=== PATIENT | female | born 2000 | race Two or more races ===

== ENCOUNTER 2021-04-30 21:43 | Emergency (ER) | payer SELFPAY ==
[2021-04-30 22:33] VITALS: BP 107/69; PULSE 68; RESP 16; TEMP 97.9
[2021-04-30 23:05] LABS: Amorphous Sediment,Urine Rare /hpf; Appearance,Urine Clear (Clear); Bilirubin,Urine Negative (Negative); Blood,Urine Negative (Negative); Color,Urine Yellow; Glucose,Urine (UA) Negative (Negative); Ketones,Urine 1+ (Negative); Leukocyte Esterase,Urine Small (Negative); Mucus,Urine Few /hpf; Nitrite,Urine Negative (Negative); PH, Urine 5.5 (5.0-8.0); Protein,Urine 1+ (Negative); RBC,Urine 2 /hpf (0-5); Specific Gravity,Urine 1.032 (1.001-1.035); Squamous Epithelial Cell,Urine 5 /hpf (0-4); WBC,Urine 18 /hpf (0-5)
== END 2021-04-30 23:30 | disposition left against medical advice (07) ==
LOC: EC 21:43
DX: O26.851 Spotting complicating pregnancy, first trimester (principal); Z3A.00 Weeks of gestation of pregnancy not specified; Z53.21 Procedure and treatment not carried out due to patient leaving prior to being seen by health care provider
CPT/HCPCS: 81001; 87086; 99499

== ENCOUNTER 2021-06-25 13:59 | Emergency (ER) | payer OTHER ==
[2021-06-25 14:20] VITALS: RESP 18; TEMP 97.1
[2021-06-25] MEDS ORDERED: SODIUM CHLORIDE 0.9% 1,000 ML IV ONE (14:52)
[2021-06-25 15:22] LABS: Basophils % (A) 1 %; Eosinophils # (A) 0.5 k/uL (0-0.7); Eosinophils % (A) 5 %; HCT 36.7 % (34.0-46.0); HGB 12.5 gm/dL (11.4-16.0); Lymphocytes # (A) 2.3 k/uL (1.0-4.8); Lymphocytes % (A) 25 %; MCH 30.7 pg (25.0-35.0); MCHC 34.2 g/dL (31.0-37.0); MCV 89.7 fL (80.0-100.0); Mean Platelet Volume 8.4; Monocytes # (A) 0.4 k/uL (0-1.0); Monocytes % (A) 4 %; Neutrophils # (A) 6.1 k/uL (1.3-7.7); Neutrophils % (A) 65 %; Platelet Count 223 k/uL (150-450); RBC 4.09 m/uL (3.80-5.40); RDW 12.9 % (11.5-15.5); WBC 9.3 k/uL (3.8-10.6)
[2021-06-25 15:44] LABS: ALT 11 U/L (4-34); AST 19 U/L (14-36); African American GFR (CKD) >90 (>60 ml/min/1.73 sqM); Albumin 3.6 g/dL (3.5-5.0); Alkaline Phosphatase 54 U/L (38-126); Anion Gap 9 mmol/L; Blood Urea Nitrogen 5 mg/dL (7-17); Calcium 9.3 mg/dL (8.4-10.2); Carbon Dioxide 21 mmol/L (22-30); Chloride 106 mmol/L (98-107); Glucose 83 mg/dL (74-99); Non-African American GFR(CKD) >90 (>60 ml/min/1.73 sqM); Potassium 3.7 mmol/L (3.5-5.1); Sodium 136 mmol/L (137-145); Total Bilirubin 0.4 mg/dL (0.2-1.3); Total Protein 7.1 g/dL (6.3-8.2)
--- NOTE | 2021-06-25 15:53 | US ---
EXAMINATION TYPE: US OB >= 14 wk fetus DATE OF EXAM: 06/25/2021 COMPARISON: Prior ultrasound June 02, 2021 CLINICAL HISTORY: pain Pt states feeling "contractions" TECHNIQUE: Transabdominal (TA) GESTATIONAL AGE / DATING Physician Established: (15 weeks/6 days) EDC: 12/11/2021 Dates by LMP: (15 weeks/6 days) EDC: 12/11/2021 Dates by First Scan: (15 weeks/4 days) EDC: 12/13/2021 Dates by Current Scan: (15 weeks/5 days) EDC: 12/12/2021 SURVEY IUP: Single PLACENTA: Anterior PREVIA: No Previa AMANDA: 10.1 cm Normal CERVICAL LENGTH (transabdominal: norm > 3.0cm): 3.1 cm BIOMETRY PRESENTATION: Vertex BPD: 3.2 cm 15 weeks / 6 days HC: 11.8 cm 15 weeks / 6 days AC: 9.0 cm 15 weeks / 1 days FL: 1.8 cm 15 weeks / 3 days ESTIMATED WEIGHT IN GRAMS: 121.8 grams ESTIMATED WEIGHT IN LBS/OZ: 0 lbs. 4 oz. WEIGHT PERCENTAGE BASED ON ESTABLISHED DATES: 13.7% HC/AC: 1.31 Normal FL/AC: 20 Normal HEART RATE: 138 bpm RHYTHM: Normal Single live intrauterine gestation redemonstrated as gestational sac and pole are seen. Normal cephalad presentation to the fetus is identified. Low lying placenta without previa. No cervical thic kening measured towards end of study measured 1 limits of normal. Estimated amniotic fluid index with in normal limits. biometry measurements concordant and within normal limits with interval [employer] impression from prior. IMPRESSION: As above.
[2021-06-25 15:54] LABS: Appearance,Urine Clear (Clear); Bacteria,Urine Rare /hpf; Bilirubin,Urine Negative (Negative); Blood,Urine Negative (Negative); Color,Urine Light Yellow; Glucose,Urine (UA) Negative (Negative); Ketones,Urine Negative (Negative); Leukocyte Esterase,Urine Large (Negative); Mucus,Urine Rare /hpf; Nitrite,Urine Negative (Negative); PH, Urine 6.5 (5.0-8.0); Protein,Urine Negative (Negative); RBC,Urine 3 /hpf (0-5); Specific Gravity,Urine 1.004 (1.001-1.035); Squamous Epithelial Cell,Urine 2 /hpf (0-4); Urobilinogen,Urine <2.0 mg/dL (<2.0); WBC,Urine 7 /hpf (0-5)
--- NOTE | 2021-06-25 16:07 | ED ---
General Adult HPI - General Chief complaint: Abdominal Pain Stated complaint: 16wks preg, cramping Time Seen by Provider: 06/25/21 14:32 Source: patient Mode of arrival: ambulatory Limitations: no limitations - History of Present Illness Initial comments: 20-year-old female currently 16 weeks with an LMP of March 06 presents to the emergency room for abdominal pain. Patient states since earlier today she has had abdominal pain that she states feels like cramping. Patient states it comes and goes. Patient denies any vaginal bleeding. She does have some back pain in the lower back with this. Patient does have an OB and has been following outpatient.Patient has no other complaints at this time including shortness of breath, chest pain, nausea or vomiting, headache, or visual changes. - Related Data Home Medications Medication Instructions Recorded Confirmed Wag-Eevs-Lhtxm Acid 1 cap PO DAILY 06/02/21 06/02/21 [-U Capsule (formulary)] Previous Rx's Medication Instructions Recorded Cephalexin [Keflex] 500 mg PO BID 7 Days #14 cap 06/25/21 Allergies Allergy/AdvReac Type Severity Reaction Status Date / Time No Known Allergies Allergy Verified 06/25/21 15:49 Review of Systems ROS Statement: Those systems with pertinent positive or pertinent negative responses have been documented in the HPI. ROS Other: All systems not noted in ROS Statement are negative. Past Medical History Past Medical History: No Reported History History of Any Multi-Drug Resistant Organisms: None Reported Past Surgical History: No Surgical Hx Reported Past Psychological History: Depression Smoking Status: Never smoker Past Alcohol Use History: None Reported Past Drug Use History: None Reported General Exam Limitations: no limitations General appearance: alert, in no apparent distress Head exam: Present: atraumatic Eye exam: Present: normal appearance, PERRL, EOMI. Absent: scleral icterus, conjunctival injection ENT exam: Present: normal exam, mucous membranes moist Neck exam: Present: normal inspection, full ROM. Absent: tenderness Respiratory exam: Present: normal lung sounds bilaterally. Absent: respiratory distress, wheezes Cardiovascular Exam: Present: regular rate, normal rhythm, normal heart sounds GI/Abdominal exam: Present: soft, normal bowel sounds. Absent: distended, tenderness Neurological exam: Present: alert Course Vital Signs 06/25/21 14:16 Temperature 97.1 F L Pulse Rate 69 Respiratory 18 Rate Blood Pressure 96/62 O2 Sat by Pulse 100 Oximetry Medical Decision Making - Medical Decision Making Vitals are stable. CBC CMP unremarkable. Urinalysis does show mild evidence of infection with 7 white cells and rare bacteria, will be treated given recommendations to treat asymptomatic bacturia and . Ultrasound was obtained which showed a single live intrauterine gestation. Cervical length 3.1 cm. At this time patient is stable to be discharged home with follow-up with her doctor. She should return here for any worsening symptoms. - Lab Data Result diagrams: 06/25/21 15:16 06/25/21 15:16 Lab Results 06/25/21 06/25/21 06/25/21 Range/Units 15:16 15:16 15:16 WBC 9.3 (3.8-10.6) k/uL RBC 4.09 (3.80-5.40) m/uL Hgb 12.5 (11.4-16.0) gm/dL Hct 36.7 (34.0-46.0) % MCV 89.7 (80.0-100.0) fL MCH 30.7 (25.0-35.0) pg MCHC 34.2 (31.0-37.0) g/dL RDW 12.9 (11.5-15.5) % Plt Count 223 (150-450) k/uL MPV 8.4 Neutrophils % 65 % Lymphocytes % 25 % Monocytes % 4 % Eosinophils % 5 % Basophils % 1 % Neutrophils # 6.1 (1.3-7.7) k/uL Lymphocytes # 2.3 (1.0-4.8) k/uL Monocytes # 0.4 (0-1.0) k/uL Eosinophils # 0.5 (0-0.7) k/uL Basophils # 0.0 (0-0.2) k/uL Sodium 136 L (137-145) mmol/L Potassium 3.7 (3.5-5.1) mmol/L Chloride 106 (98-107) mmol/L Carbon Dioxide 21 L (22-30) mmol/L Anion Gap 9 mmol/L BUN 5 L (7-17) mg/dL Creatinine 0.40 L (0.52-1.04) mg/dL Est GFR (CKD-EPI)AfAm >90 (>60 ml/min/1.73 sqM) Est GFR (CKD-EPI)NonAf >90 (>60 ml/min/1.73 sqM) Glucose 83 (74-99) mg/dL Calcium 9.3 (8.4-10.2) mg/dL Total Bilirubin 0.4 (0.2-1.3) mg/dL AST 19 (14-36) U/L ALT 11 (4-34) U/L Alkaline Phosphatase 54 (38-126) U/L Total Protein 7.1 (6.3-8.2) g/dL Albumin 3.6 (3.5-5.0) g/dL Urine Color Light Yellow Urine Appearance Clear (Clear) Urine pH 6.5 (5.0-8.0) Ur Specific [place] 1.004 (1.001-1.035) Urine Protein Negative (Negative) Urine Glucose (UA) Negative (Negative) Urine Ketones Negative (Negative) Urine Blood Negative (Negative) Urine Nitrite Negative (Negative) Urine Bilirubin Negative (Negative) Urine Urobilinogen <2.0 (<2.0) mg/dL Ur Leukocyte Esterase Large H (Negative) Urine RBC 3 (0-5) /hpf Urine WBC 7 H (0-5) /hpf Ur Squamous Epith Cells 2 (0-4) /hpf Urine Bacteria Rare H (None) /hpf Urine Mucus Rare H (None) /hpf Disposition Clinical Impression: Abdominal pain affecting , UTI (urinary tract infection) Disposition: HOME SELF-CARE Condition: Good Instructions (If sedation given, give patient instructions): Abdominal Pain in (ED) Additional Instructions: Please follow up with your obgyn in 1-2 days. Return to the ER for any worsening symptoms. Prescriptions: Cephalexin [Keflex] 500 mg PO BID 7 Days #14 cap Is patient prescribed a controlled substance at d/c from ED?: No Referrals: Estefania Aguiar DO [Doctor of Osteopathic Medicine] - 1-2 days Time of Disposition: 16:07
[2021-06-25] MEDS ORDERED: CEPHALEXIN 500 MG CAP PO STA (16:28)
[2021-06-25 16:40] VITALS: BP 114/60; PULSE 61
== END 2021-06-25 16:42 | disposition home or self-care (01) ==
LOC: EC 13:59
DX: O23.42 Unspecified infection of urinary tract in pregnancy, second trimester (principal); N39.0 Urinary tract infection, site not specified; Z3A.16 16 weeks gestation of pregnancy
CPT/HCPCS: 36415; 76805; 80053; 81001; 85025; 96360; 99284

== ENCOUNTER → 2022-02-19 | Outpatient (CLI) | payer OTHER ==
--- NOTE | 2022-02-19 09:09 | US ---
EXAMINATION TYPE: US pelvic complete DATE OF EXAM: 02/19/2022 COMPARISON: NONE CLINICAL HISTORY: 21-year-old female R10.2, N83.201. History of right ovarian cyst seen on CT last m onth in [place], , mild pelvic pain, TECHNIQUE: Transabdominal sonographic images of the pelvis were acquired. Date of LMP: 02/03/2022 FINDINGS: EXAM MEASUREMENTS: Uterus: 8.1 x 5.2 x 3.0 cm Endometrial Stripe: 0.4 cm Right Ovary: 3.2 x 2.6 x 2.5 cm Left Ovary: 2.9 x 2.8 x 2.0 cm 1. Uterus: Anteverted and otherwise wnl 2. Endometrium: wnl 3. Right Ovary: 2.3 x 2.1 x 1.7cm 4. Left Ovary: wnl 5. Bilateral Adnexa: wnl 6. Posterior cul-de-sac: wnl IMPRESSION: 1. Right ovarian cyst measuring 2.3 cm. This likely represents a dominant follicle or functional cyst . Correlate with size on the patient's outside prior. Follow-up in 6-8 weeks can be considered to ass ess for involution. 2. Otherwise, no specific abnormality seen.
== END | disposition home or self-care (01) ==
LOC: RADUSWWP 07:38 → MERGE 07:40
PROVIDERS: ATTEND Obstetrics & Gynecology
DX: N83.201 Unspecified ovarian cyst, right side (principal)
CPT/HCPCS: 76856

== ENCOUNTER 2023-08-26 11:15 | Emergency (ER) | payer OTHER ==
[2023-08-26 11:48] VITALS: RESP 18; TEMP 98.2
--- NOTE | 2023-08-26 11:53 | ED ---
Female Urogenital HPI - General Chief complaint: Vaginal Bleeding Stated complaint: Vaginal bleeding/ 8wks preg Time Seen by Provider: 08/26/23 11:51 Source: patient, family, RN notes reviewed Mode of arrival: ambulatory Limitations: no limitations - History of Present Illness Initial comments: Patient is a 23-year-old female presented to the ER with a chief complaint of passing a vaginal clot. Patient reports she is about 8 weeks . She states yesterday at work she started to have minor abdominal cramping which resolved later at night. She states this morning she passed a clot about the size of a quarter. She states also while in the bathroom in the ER she had a little bit of blood. Denies any current abdominal cramping, dysuria, constipation/diarrhea. She has not yet followed up with [facility]. No other complaints. - Related Data Home Medications Medication Instructions Recorded Confirmed Utn-Tspe-Hqwbi Acid 1 cap PO DAILY 06/02/21 06/02/21 [-U Capsule (formulary)] Previous Rx's Medication Instructions Recorded Cephalexin [Keflex] 500 mg PO BID 7 Days #14 cap 06/25/21 Allergies Allergy/AdvReac Type Severity Reaction Status Date / Time No Known Allergies Allergy Verified 08/26/23 11:24 Review of Systems ROS Statement: Those systems with pertinent positive or pertinent negative responses have been documented in the HPI. ROS Other: All systems not noted in ROS Statement are negative. Past Medical History Past Medical History: No Reported History Additional Past Medical History / Comment(s): ovarian cysts History of Any Multi-Drug Resistant Organisms: None Reported Past Surgical History: No Surgical Hx Reported, Section Past Psychological History: Depression, Panic Disorder Smoking Status: Never smoker Past Alcohol Use History: Occasional Past Drug Use History: None Reported General Exam Limitations: no limitations General appearance: alert, in no apparent distress Head exam: Present: atraumatic, normocephalic, normal inspection Eye exam: Present: normal appearance, PERRL, EOMI. Absent: scleral icterus, conjunctival injection, periorbital swelling Respiratory exam: Present: normal lung sounds bilaterally. Absent: respiratory distress, wheezes, rales, rhonchi, stridor Cardiovascular Exam: Present: regular rate, normal rhythm, normal heart sounds. Absent: systolic murmur, diastolic murmur, rubs, gallop, clicks GI/Abdominal exam: Present: soft, normal bowel sounds. Absent: distended, tenderness, guarding, rebound, rigid Neurological exam: Present: alert, oriented X3, CN II-XII intact Psychiatric exam: Present: normal affect, normal mood Skin exam: Present: warm, dry, intact, normal color. Absent: rash Course Vital Signs 08/26/23 08/26/23 11:21 15:29 Temperature 98.2 F Pulse Rate 68 61 Respiratory 18 18 Rate Blood Pressure 103/66 116/69 O2 Sat by Pulse 99 100 Oximetry Medical Decision Making - Medical Decision Making Was pt. sent in by a medical professional or institution (, PA, GRAIN BROKER AND MARKET OPERATOR, urgent care, hospital, or senior care...) When possible be specific @ -No Did you speak to anyone other than the patient for history (EMS, parent, family, police, friend...)? What history was obtained from this source @ -No Did you review nursing and triage notes (agree or disagree)? Why? @ -I reviewed and agree with nursing and triage notes Were old charts reviewed (outside hosp., previous admission, EMS record, old EKG, old radiological studies, urgent care reports/EKG's, senior care records)? Report findings @ -No old charts were reviewed Differential Diagnosis (chest pain, altered mental status, abdominal pain women, abdominal pain men, vaginal bleeding, weakness, fever, dyspnea, syncope, headache, dizziness, GI bleed, back pain, seizure, CVA, palpatations, mental he alth, musculoskeletal)? @Differential Vaginal Bleeding:Spontaneous , threatened , molar , ectopic , bloody show, incompetent cervix, abruptioplacenta, placenta previa, uterine rupture, dysfunctional uterine bleeding, hemorrhage, uterine fibroids, this is not meant to be an all-inclusive list. EKG interpreted by me (3pts min.). @ -[None X-rays interpreted by me (1pt min.). @ -None done CT interpreted by me (1pt min.). @ -None done U/S interpreted by me (1pt. min.). @ -[ ultrasound significant for a single IUP gestational age 8 weeks 1 day. heart rate 138 bpm. There is also an irregular shaped a yolk sac measuring 5 mm. Possible deformity. What testing was considered but not performed or refused? (CT, X-rays, U/S, labs)? Why? @ -None What meds were considered but not given or refused? Why? @ -None Did you discuss the management of the patient with other professionals (professionals i.e. , PA, GRAIN BROKER AND MARKET OPERATOR, lab, RT, psych nurse, social media content manager, credit and collections representative, teacher, commercial loan officer, rn case management)? Give summary @ -No Was smoking cessation discussed for >3mins.? @ -No Was critical care preformed (if so, how long)? @ -No Were there social determinants of health that impacted care today? How? (Homelessness, low income, unemployed, alcoholism, drug addiction, transportation, low edu. Level, literacy, decrease access to med. care, retirement, rehab)? @ -No Was there de-escalation of care discussed even if they declined (Discuss DNR or withdrawal of care, Hospice)? DNR status @ -No What co-morbidities impacted this encounter? (DM, HTN, Smoking, COPD, CAD, Cancer, CVA, ARF, Chemo, Hep., AIDS, mental health diagnosis, sleep apnea, mo rbid obesity)? @ - Was patient admitted / discharged? Hospital course, mention meds given and route, prescriptions, significant lab abnormalities, going to OR and other pertinent info. @ -Discharge. Patient is a 23-year-old female presenting to the ER with a chief complaint of vaginal clots. Patient is approximately 8 weeks gestation. History and physical exam completed. Vitals stable. Patient in no signs of acute distress and nontoxic-appearing. No focal abdominal tenderness to exam. Normal bowel sounds. Labs obtained unremarkable. Hemoglobin 12.2. serum hCG 104,873. Urine without signs of infection. ultrasound significant for single IUP gestation 8 weeks 1 day. Cardiac activity is 138 bpm. There is a possible deformity of yolk sac. Results discussed with patient, all questions answered. Blood type A positive. Advise close follow-up with [facility]. Patient discharged in stable condition with follow-up to [facility]. Return parameters discussed. Patient expressed verbal understanding and agreement with care plan. Case discussed with ED attending, Dr. Santo. Undiagnosed new problem with uncertain prognosis? @ -No Drug Therapy requiring intensive monitoring for toxicity (Heparin, Nitro, Insulin, Cardizem)? @ -No Were any procedures done? @ -No Diagnosis/symptom? @ -/vaginal bleeding Acute, or Chronic, or Acute on Chronic? @ -Acute Uncomplicated (without systemic symptoms) or Complicated (systemic symptoms)? @ -Uncomplicated Side effects of treatment? @ -No Exacerbation, Progression, or Severe Exacerbation? @ -No Poses a threat to life or bodily function? How? (Chest pain, [place], CO, pneumonia, PE, COPD, DKA, ARF, appy, cholecystitis, CVA, Diverticulitis, Homicidal, Suicidal, threat to staff... and all critical care pts) @ -No - Lab Data Result diagrams: 08/26/23 12:07 08/26/23 12:07 Lab Results 08/26/23 08/26/23 08/26/23 Range/Units 12:07 12:07 12:07 WBC 7.8 (3.8-10.6) k/uL RBC 4.29 (3.80-5.40) m/uL Hgb 12.2 (11.4-16.0) gm/dL Hct 38.2 (34.0-46.0) % MCV 88.9 (80.0-100.0) fL MCH 28.3 (25.0-35.0) pg MCHC 31.8 (31.0-37.0) g/dL RDW 13.5 (11.5-15.5) % Plt Count 252 (150-450) k/uL MPV 8.8 Sodium 137 (137-145) mmol/L Potassium 4.1 (3.5-5.1) mmol/L Chloride 108 H (98-107) mmol/L Carbon Dioxide 22 (22-30) mmol/L Anion Gap 7 mmol/L BUN 5 L (7-17) mg/dL Creatinine 0.38 L (0.52-1.04) mg/dL Est GFR (CKD-EPI)AfAm >90 (>60 ml/min/1.73 sqM) Est GFR (CKD-EPI)NonAf >90 (>60 ml/min/1.73 sqM) Glucose 85 (74-99) mg/dL Calcium 9.0 (8.4-10.2) mg/dL Total Bilirubin 0.4 (0.2-1.3) mg/dL AST 23 (14-36) U/L ALT 15 (4-34) U/L Alkaline Phosphatase 65 (38-126) U/L Total Protein 7.8 (6.3-8.2) g/dL Albumin 4.2 (3.5-5.0) g/dL HCG, Quant 546282.0 mIU/mL Urine Color Colorless Urine Appearance Clear (Clear) Urine pH 7.0 (5.0-8.0) Ur Specific [place] 1.003 (1.001-1.035) Urine Protein Negative (Negative) Urine Glucose (UA) Negative (Negative) Urine Ketones Negative (Negative) Urine Blood Small H (Negative) Urine Nitrite Negative (Negative) Urine Bilirubin Negative (Negative) Urine Urobilinogen <2.0 (<2.0) mg/dL Ur Leukocyte Esterase Negative (Negative) Urine RBC 1 (0-5) /hpf Urine WBC 1 (0-5) /hpf Ur Squamous Epith Cells <1 (0-4) /hpf Blood Type Blood Type Recheck Bld Type Recheck Status 08/26/23 Range/Units 14:05 WBC (3.8-10.6) k/uL RBC (3.80-5.40) m/uL Hgb (11.4-16.0) gm/dL Hct (34.0-46.0) % MCV (80.0-100.0) fL MCH (25.0-35.0) pg MCHC (31.0-37.0) g/dL RDW (11.5-15.5) % Plt Count (150-450) k/uL MPV Sodium (137-145) mmol/L Potassium (3.5-5.1) mmol/L Chloride (98-107) mmol/L Carbon Dioxide (22-30) mmol/L Anion Gap mmol/L BUN (7-17) mg/dL Creatinine (0.52-1.04) mg/dL Est GFR (CKD-EPI)AfAm (>60 ml/min/1.73 sqM) Est GFR (CKD-EPI)NonAf (>60 ml/min/1.73 sqM) Glucose (74-99) mg/dL Calcium (8.4-10.2) mg/dL Total Bilirubin (0.2-1.3) mg/dL AST (14-36) U/L ALT (4-34) U/L Alkaline Phosphatase (38-126) U/L Total Protein (6.3-8.2) g/dL Albumin (3.5-5.0) g/dL HCG, Quant mIU/mL Urine Color Urine Appearance (Clear) Urine pH (5.0-8.0) Ur Specific [place] (1.001-1.035) Urine Protein (Negative) Urine Glucose (UA) (Negative) Urine Ketones (Negative) Urine Blood (Negative) Urine Nitrite (Negative) Urine Bilirubin (Negative) Urine Urobilinogen (<2.0) mg/dL Ur Leukocyte Esterase (Negative) Urine RBC (0-5) /hpf Urine WBC (0-5) /hpf Ur Squamous Epith Cells (0-4) /hpf Blood Type A Positive Blood Type Recheck No Previous Record Bld Type Recheck Status [facility] ONLY - Radiology Data Radiology results: report reviewed, image reviewed Disposition Clinical Impression: Vaginal bleeding during Disposition: HOME SELF-CARE Condition: Stable Instructions (If sedation given, give patient instructions): (ED) Additional Instructions: Follow-up with [facility] in the next 1 to 2 days. Return to the ER for any new or worsening concerns. Is patient prescribed a controlled substance at d/c from ED?: No Referrals: Nonstaff,Physician [Primary Care Provider] - 1-2 days Time of Disposition: 15:26
[2023-08-26 12:16] LABS: HCT 38.2 % (34.0-46.0); HGB 12.2 gm/dL (11.4-16.0); MCH 28.3 pg (25.0-35.0); MCHC 31.8 g/dL (31.0-37.0); MCV 88.9 fL (80.0-100.0); Mean Platelet Volume 8.8; Platelet Count 252 k/uL (150-450); RBC 4.29 m/uL (3.80-5.40); RDW 13.5 % (11.5-15.5); WBC 7.8 k/uL (3.8-10.6)
[2023-08-26 12:18] LABS: Appearance,Urine Clear (Clear); Bilirubin,Urine Negative (Negative); Blood,Urine Small (Negative); Color,Urine Colorless; Glucose,Urine (UA) Negative (Negative); Ketones,Urine Negative (Negative); Leukocyte Esterase,Urine Negative (Negative); Nitrite,Urine Negative (Negative); Protein,Urine Negative (Negative); RBC,Urine 1 /hpf (0-5); Specific Gravity,Urine 1.003 (1.001-1.035); Squamous Epithelial Cell,Urine <1 /hpf (0-4); Urobilinogen,Urine <2.0 mg/dL (<2.0); WBC,Urine 1 /hpf (0-5)
[2023-08-26 12:32] LABS: ALT 15 U/L (4-34); AST 23 U/L (14-36); African American GFR (CKD) >90 (>60 ml/min/1.73 sqM); Albumin 4.2 g/dL (3.5-5.0); Alkaline Phosphatase 65 U/L (38-126); Anion Gap 7 mmol/L; Blood Urea Nitrogen 5 mg/dL (7-17); Carbon Dioxide 22 mmol/L (22-30); Chloride 108 mmol/L (98-107); Glucose 85 mg/dL (74-99); Non-African American GFR(CKD) >90 (>60 ml/min/1.73 sqM); Potassium 4.1 mmol/L (3.5-5.1); Sodium 137 mmol/L (137-145); Total Bilirubin 0.4 mg/dL (0.2-1.3); Total Protein 7.8 g/dL (6.3-8.2)
--- NOTE | 2023-08-26 13:13 | US ---
EXAMINATION TYPE: Transabdominal DATE OF EXAM: 08/26/2023 12:50 PM COMPARISON: NONE CLINICAL INDICATION: Female, 23 years old with history of vaginal bleeding and abd cramping; Clotting followed by spotting and cramping EXAM PERFORMED: Transvaginal (TV) and Transabdominal (TA) EXAM MEASUREMENTS: GESTATIONAL AGE / DATING Physician Established: (7 weeks/5 days) EDC: 04/08/2024 Dates by LMP: ( weeks/ days) EDC: Dates by First Scan: (7 weeks/5 days) EDC: 04/08/2024 Dates by Current Scan for: (8 weeks/1 days) EDC: 04/05/2024 MATERNAL ANATOMY Uterus: 9.7 x 4.9 x 5.7 cn Right Ovary: 3.1 x 1.9 x 2.3 cm Left Ovary: 3.1 x 1.9 x 2.3 cm Post CDS / Adnexa: Free fluid Presence of free fluid: CDS Presence of corpus luteal cyst: No Presence of subchorionic bleed: Yes GESTATION / SURVEY CRL: 16.19 (8 weeks/1 days) MSD: NA ( weeks/ days) Yolk Sac (normal less than 6mm): 5 mm ? Irregular shape Heart Rate: 138 bpm Rhythm: Normal IUP: Viable IUP Nuchal Translucency 10-14wks (normal less than 3mm): NA Age Appropriate Anatomy Cord Insertion: NA Limbs: NA Calvarium: NA Date of LMP: Beta HcG (if available): IMPRESSION: 1. 1. Single intrauterine gestation estimated at 8 weeks 1 day gestation based on crown-rump length. Car diac activity measures 138 bpm. 2. There may be some deformity of the yolk sac. Close follow-up is recommended.
[2023-08-26 16:05] VITALS: BP 116/69; PULSE 61
== END 2023-08-26 15:37 | disposition home or self-care (01) ==
LOC: EC 11:15
DX: O99.891 Other specified diseases and conditions complicating pregnancy (principal); N93.9 Abnormal uterine and vaginal bleeding, unspecified; Z3A.08 8 weeks gestation of pregnancy
CPT/HCPCS: 36415; 76801; 80053; 81001; 84702; 85027; 86900; 86901; 99284

== ENCOUNTER → 2023-09-08 | Outpatient (CLI) | payer OTHER ==
--- NOTE | 2023-09-09 13:26 | US ---
EXAMINATION TYPE: Transabdominal DATE OF EXAM: 09/08/2023 4:23 PM COMPARISON: 08/26/2023 CLINICAL INDICATION: Female, 23 years old with history of Z34.90 ENCNTR FOR SUPRVSN OF NORMAL PREGNAN CY, UNS; Dates EXAM PERFORMED: Transvaginal (TV) and Transabdominal (TA) EXAM MEASUREMENTS: GESTATIONAL AGE / DATING Physician Established: (9 weeks/6 days) EDC: 04/08/2024 Dates by LMP: (9 weeks/6 days) EDC: 04/08/2024 Dates by First Scan: (7 weeks/5 days) EDC: Dates by Current Scan for: (9 weeks/4 days) EDC: 04/06/2024 MATERNAL ANATOMY Uterus: 8.0 x 5.1 x 7.0 cm Right Ovary: 2.7 x 1.4 x 2.2 cm Left Ovary: 2.1 x .7 x 1.4 cm Post CDS / Adnexa: wnl Presence of free fluid: no Presence of corpus luteal cyst: no Presence of subchorionic bleed: no GESTATION / SURVEY CRL: 2.88 cm (9 weeks/6 days) Yolk Sac (normal less than 6mm): 4mm Heart Rate: 150 bpm Rhythm: Normal IUP: Viable IUP Beta HcG (if available): Not available at this time IMPRESSION: 1. Intrauterine gestation measuring approximately 9 weeks 6 days with a heart rate of 150 bpm.
== END | disposition home or self-care (01) ==
LOC: RADUSWWP 15:45
PROVIDERS: ATTEND Obstetrics & Gynecology
DX: Z34.90 Encounter for supervision of normal pregnancy, unspecified, unspecified trimester (principal); Z3A.09 9 weeks gestation of pregnancy
CPT/HCPCS: 76801; 76817

== ENCOUNTER → 2023-12-14 | Outpatient (CLI) | payer OTHER ==
--- NOTE | 2023-12-14 21:34 | US ---
EXAMINATION TYPE: US OB anatomy transabd DATE OF EXAM: 12/14/2023 COMPARISON: Multiple, most recent 09/08/2023 CLINICAL INDICATION: Female, 23 years old with history of Z34.90 ENCNTR FOR SUPRVSN OF NORMAL PREGNAN CY; Anatomy; Patient states she feels like baby is falling out TECHNIQUE: Transabdominal (TA) EXAM MEASUREMENTS: GESTATIONAL AGE / DATING Physician Established: (23 weeks/3 days) EDC: 04/08/2024 Dates by LMP: ( weeks/ days) EDC: Dates by First Scan: ( weeks/ days) EDC: Dates by Current Scan for: (24 weeks/1 days) EDC: 04/03/2024 SURVEY IUP: Single PLACENTA: Anterior PREVIA: No previa AMANDA: 14.7 cm Normal CERVICAL LENGTH (transabdominal: norm > 3.0cm): 3.4 cm BIOMETRY PRESENTATION: Vertex LIE: Longitudinal BPD: 5.92 cm 24 weeks / 2 days HC: 22.08 cm 24 weeks / 1 days AC: 19.16 cm 24 weeks / 0 days FL: 4.26 cm 24 weeks / 0 days ESTIMATED WEIGHT IN GRAMS: 644 grams ESTIMATED WEIGHT IN LBS/OZ: 1 lbs. 7 oz. WEIGHT PERCENTAGE BASED ON ESTABLISHED DATE: 67% % HC/AC: 1.15 Normal FL/AC: 22% Normal HEART RATE: 143 bpm RHYTHM: Normal ANATOMY SEEN (within normal limits): * Lateral Vent (< 1 cm) 0.53 cm * Cisterna Magna (< 1.1 cm) 0.48 cm * Nuchal Fold (< 0.6 cm) 0.2 cm * Cerebellum (varies with age) 2.36 cm Choroid Plexus (bilateral) Midline Falx Cavus Septi Pellucidi Four Chamber Heart Outflow tracts: LVOT/RVOT Stomach Situs Nose / Lips Diaphragm Kidneys (bilateral) Bladder Cord Insert Three Vessel Cord Longitudinal Spine Transverse Spine Arms (bilateral) Legs (bilateral) ANATOMY SEEN (does not appear within normal limits): ? upper lip artifact / suboptimal angle vs subtl e cleft lip IMG 20 and 21 ANATOMY NOT SEEN: ALL ANATOMY SEEN ON THIS EXAM IMPRESSION: 1. Limitation on evaluation of the upper lip and palate. Follow-up reevaluation recommended. 2. Single intrauterine gestation estimated at 23 weeks 3 days gestation based on current ultrasound m easurements. Cardiac activity measures 143 beats per was observed during the study.
== END | disposition home or self-care (01) ==
LOC: RADUSWWP 13:17
PROVIDERS: ATTEND Obstetrics & Gynecology
DX: Z34.90 Encounter for supervision of normal pregnancy, unspecified, unspecified trimester (principal); Z3A.23 23 weeks gestation of pregnancy
CPT/HCPCS: 76811

== ENCOUNTER 2024-01-20 22:30 | Observation (INO) | payer OTHER ==
--- NOTE | 2024-03-01 10:34 | US ---
Patient: Darrian Thompson Ordering Physician: Unknown, Unknown ID: [id number] Phone, Pager: Phone: N/A Pager: N/A : [phone] Age/Gender: 23Y, F Primary Location: N/A Procedure: US OB limited Study Date: 01/21/2024 7:26:00 AM EXAMINATION TYPE: US OB limited DATE OF EXAM: 01/21/2024 0726 hours COMPARISON: Earlier this morning 1219 hours CLINICAL INDICATION: 23-year-old female with leaking fluid yesterday. Recheck. EXAM PERFORMED: Transabdominal GESTATIONAL AGE / DATING Not performed. AMANDA: 18.5 cm Normal HEART RATE: 142 bpm IMPRESSION: Limited OB exam assessing AMANDA and heart rate. AMANDA is normal at 18.5 cm (measured at 15.9 cm lat e last night).
--- NOTE | 2024-03-01 10:38 | US ---
EXAM: US , Limited CLINICAL HISTORY: Limited ultrasound for AMANDA. 28weeks 6 days. AMANDA measures 15.9cmas seen today. Heart rate is 133bpm. Fetus is in vertex presentation. TECHNIQUE: Real-time limited ultrasound of the maternal uterus with image documentation. COMPARISON: None FINDINGS/ IMPRESSION: Single intrauterine with heart rate of 133 bpm. Cephalic presentation of the fetus. Normal amniotic fluid index, measuring 15.94 cm. Radiologist: Donte Chaney M.D. Electronically Signed: 01/21/24 05:19 Study first marked ready to read at 00:43, study last marked ready to read at 00:43, initial results transmitted at 05:19 MTDD
== END 2024-01-21 11:00 | disposition home or self-care (01) ==
LOC: FBPOP 22:30 → 4FBP 01-21 00:48
PROVIDERS: ADMIT Obstetrics & Gynecology; ATTEND Obstetrics & Gynecology
DX: O47.03 False labor before 37 completed weeks of gestation, third trimester
CPT/HCPCS: 59025; 76815; 84112; 99214

== ENCOUNTER 2024-08-07 22:53 | Emergency (ER) | payer OTHER ==
[2024-08-07 22:58] VITALS: RESP 18
--- NOTE | 2024-08-07 23:10 | ED ---
General Adult HPI - General Chief complaint: Abdominal Pain Stated complaint: Cramping - 6 wks preg Time Seen by Provider: 08/07/24 23:00 Source: patient, RN notes reviewed Mode of arrival: ambulatory - History of Present Illness Initial comments: This is a 24-year-old female, [id number], presenting to the emergency department approximately 6 weeks gestation with abdominal cramping and nausea. States over the past 3 days she has been experiencing umbilical discomfort that is ex acerbated with food consumption however today the pain has been persistent with radiation through her back and down to her pelvis. Initially pain was exacerbated with food consumption however has been persistent over the past day. She endorses associated nausea with no reported emesis. She states that yesterday she had light pink vaginal discharge. Denies hematuria, dysuria, increased urinary frequency or urgency, fevers, chills, flank pain. Patient has not yet had a ultrasound during this . Of note, states that she had a recent delivery in February 2024. - Related Data Home Medications Medication Instructions Recorded Confirmed [id number] Acid 1 cap PO DAILY 06/02/21 03/06/24 [-U Capsule (formulary)] Allergies Allergy/AdvReac Type Severity Reaction Status Date / Time No Known Allergies Allergy Verified 03/06/24 16:09 Review of Systems ROS Statement: Those systems with pertinent positive or pertinent negative responses have been documented in the HPI. ROS Other: All systems not noted in ROS Statement are negative. Past Medical History Past Medical History: No Reported History Additional Past Medical History / Comment(s): ovarian cysts History of Any Multi-Drug Resistant Organisms: None Reported Past Surgical History: No Surgical Hx Reported, Section Past Psychological History: Depression, Panic Disorder Smoking Status: Never smoker Past Alcohol Use History: Occasional Past Drug Use History: Marijuana General Exam General appearance: alert, in no apparent distress Neck exam: Present: normal inspection. Absent: tenderness, meningismus, lymphadenopathy Respiratory exam: Present: normal lung sounds bilaterally. Absent: respiratory distress, wheezes, rales, rhonchi, stridor Cardiovascular Exam: Present: regular rate, normal rhythm, normal heart sounds. Absent: systolic murmur, diastolic murmur, rubs, gallop, clicks GI/Abdominal exam: Present: soft, tenderness (lower abomen/pelvic, epigastric), normal bowel sounds. Absent: distended, guarding, rebound, rigid Extremities exam: Present: normal inspection, full ROM, normal capillary refill. Absent: tenderness, pedal edema, joint swelling, calf tenderness Course Vital Signs 08/07/24 22:55 Temperature 98.2 F Pulse Rate 73 Respiratory 18 Rate Blood Pressure 123/82 O2 Sat by Pulse 99 Oximetry Medical Decision Making - Medical Decision Making Was pt. sent in by a medical professional or institution (, PA, STEWARD/STEWARDESS ROOM, urgent care, hospital, or shelter...) When possible be specific @ -No Did you speak to anyone other than the patient for history (EMS, parent, family, police, friend...)? What history was obtained from this source @ -No Did you review nursing and triage notes (agree or disagree)? Why? @ -I reviewed and agree with nursing and triage notes Were old charts reviewed (outside hosp., previous admission, EMS record, old EKG, old radiological studies, urgent care reports/EKG's, shelter records)? Report findings @ -No old charts were reviewed Differential Diagnosis (chest pain, altered mental status, abdominal pain women, abdominal pain men, vaginal bleeding, weakness, fever, dyspnea, syncope, headach e, dizziness, GI bleed, back pain, seizure, CVA, palpatations, mental health, musculoskeletal)? @ -Differential Abdominal Pain Women: Appendicitis, Cholecystitis, diverticulosis, ischemic bowel, pancreatitis, hepatitis, UTI, gastroenteritis, AAA, incarcerated hernia, bowel obstruction, constipation, inflammatory bowel, hepatitis, peptic ulcer disease, splenic infarction, perforated viscus, vulvitis, ovarian torsion, PID, kidney stone, placenta abruption, this is not meant to be an all-inclusive list EKG interpreted by me (3pts min.). @ -None X-rays interpreted by me (1pt min.). @ -None done CT interpreted by me (1pt min.). @ -None done U/S interpreted by me (1pt. min.). @ -Gallbladder ultrasound completed with no acute findings OB ultrasound completed which reveals a small saclike structure in the endometrial cavity measuring approximately 0.34 cm consistent with 4 weeks 6 da ys gestation with no definitive surrounding decidual reaction, no yolk sac or pole, subchronic hemorrhage measuring 9 x 5 x 20 mm What testing was considered but not performed or refused? (CT, X-rays, U/S, labs)? Why? @ -None What meds were considered but not given or refused? Why? @ -None Did you discuss the management of the patient with other professionals (professionals i.e. , PA, STEWARD/STEWARDESS ROOM, lab, RT, psych nurse, director of social work, used car lot attendant, teacher, compliance officer, transplant case manager)? Give summary @ -No Was smoking cessation discussed for >3mins.? @ -No Was critical care preformed (if so, how long)? @ -No Were there social determinants of health that impacted care today? How? (Homele ssness, low income, unemployed, alcoholism, drug addiction, transportation, low edu. Level, literacy, decrease access to med. care, mcc, rehab)? @ -No Was there de-escalation of care discussed even if they declined (Discuss DNR or withdrawal of care, Hospice)? DNR status @ -No What co-morbidities impacted this encounter? (DM, HTN, Smoking, COPD, CAD, Cancer, CVA, ARF, Chemo, Hep., AIDS, mental health diagnosis, sleep apnea, morbid obesity)? @ -None Was patient admitted / discharged? Hospital course, mention meds given and route, prescriptions, significant lab abnormalities, going to OR and other pertinent info. @ -discharged. 24-year-old female presenting with abdominal cramping. Abdominal examination remarkable for lower abdominal/pelvic tenderness there is no epigastric tenderness to palpation. She is offered pain medication was declined. With concern for epigastric abdominal pain she will undergo ultrasound imaging in addition to ultrasound with no reported ultrasound during . Labs remarkable for mild hypokalemia with potassium of 3.3, urinalysis unremarkable, hCG level of 1438.7. Gallbladder ultrasound is unremarkable. OB ultrasound reveals small cellulitic structure consistent with 4 weeks 6 days gestation however undetermined for gestation. Patient is provided with outpatient prescription for repeat hCG testing in 48 hours recommend that she follow-up as scheduled with OB specialist and return back to emergency room for any new or worsening symptoms. Return parameters discussed. Case discussed with Dr. Santo Undiagnosed new problem with uncertain prognosis? @ -No Drug Therapy requiring intensive monitoring for toxicity (Heparin, Nitro, Insulin, Cardizem)? @ -No Were any procedures done? @ -No Diagnosis/symptom? @ -Threatened miscarriage Acute, or Chronic, or Acute on Chronic? @ -Acute Uncomplicated (without systemic symptoms) or Complicated (systemic symptoms)? @ -Complicated Side effects of treatment? @ -No Exacerbation, Progression, or Severe Exacerbation? @ -No Poses a threat to life or bodily function? How? (Chest pain, [place], [place], pneumonia, PE, COPD, DKA, ARF, appy, cholecystitis, CVA, Diverticulitis, Homicidal, Suicidal, threat to staff... and all critical care pts) @ -No - Lab Data Result diagrams: 08/07/24 23:19 08/07/24 23:19 Lab Results 08/07/24 08/07/24 08/07/24 Range/Units 23:13 23:19 23:19 WBC 4.4 (3.8-10.6) k/uL RBC 4.36 (3.80-5.40) m/uL Hgb 11.6 (11.4-16.0) gm/dL Hct 36.7 (34.0-46.0) % MCV 84.1 (80.0-100.0) fL MCH 26.5 (25.0-35.0) pg MCHC 31.5 (31.0-37.0) g/dL RDW 15.4 (11.5-15.5) % Plt Count 217 (150-450) k/uL MPV 8.5 Neutrophils % 53 % Lymphocytes % 36 % Monocytes % 5 % Eosinophils % 3 % Basophils % 0 % Neutrophils # 2.3 (1.3-7.7) k/uL Lymphocytes # 1.6 (1.0-4.8) k/uL Monocytes # 0.2 (0-1.0) k/uL Eosinophils # 0.1 (0-0.7) k/uL Basophils # 0.0 (0-0.2) k/uL Sodium 137 (137-145) mmol/L Potassium 3.3 L (3.5-5.1) mmol/L Chloride 102 (98-107) mmol/L Carbon Dioxide 24 (22-30) mmol/L Anion Gap 11 mmol/L BUN <2 L (7-17) mg/dL Creatinine 0.44 L (0.52-1.04) mg/dL Est GFR (CKD-EPI)AfAm >90 (>60 ml/min/1.73 sqM) Est GFR (CKD-EPI)NonAf >90 (>60 ml/min/1.73 sqM) Glucose 136 H (74-99) mg/dL Calcium 8.9 (8.4-10.2) mg/dL Total Bilirubin 0.5 (0.2-1.3) mg/dL AST 35 (14-36) U/L ALT 34 (4-34) U/L Alkaline Phosphatase 65 (38-126) U/L Total Protein 7.6 (6.3-8.2) g/dL Albumin 4.3 (3.5-5.0) g/dL Lipase 61 (23-300) U/L HCG, Quant 1438.7 mIU/mL Urine Color Colorless Urine Appearance Clear (Clear) Urine pH 6.0 (5.0-8.0) Ur Specific [place] 1.007 (1.001-1.035) Urine Protein Negative (Negative) Urine Glucose (UA) Negative (Negative) Urine Ketones Negative (Negative) Urine Blood Negative (Negative) Urine Nitrite Negative (Negative) Urine Bilirubin Negative (Negative) Urine Urobilinogen <2.0 (<2.0) mg/dL Ur Leukocyte Esterase Trace H (Negative) Urine RBC 1 (0-5) /hpf Urine WBC 1 (0-5) /hpf Ur Squamous Epith Cells <1 (0-4) /hpf Urine Bacteria Occasional H (None) /hpf Urine Mucus Rare H (None) /hpf Urine Yeast (Budding) Rare H (None) /hpf Blood Type Blood Type Recheck Bld Type Recheck Status Antibody Screen Antibody Identification Direct Antiglob Test Spec Expiration Date 08/07/24 Range/Units 23:19 WBC (3.8-10.6) k/uL RBC (3.80-5.40) m/uL Hgb (11.4-16.0) gm/dL Hct (34.0-46.0) % MCV (80.0-100.0) fL MCH (25.0-35.0) pg MCHC (31.0-37.0) g/dL RDW (11.5-15.5) % Plt Count (150-450) k/uL MPV Neutrophils % % Lymphocytes % % Monocytes % % Eosinophils % % Basophils % % Neutrophils # (1.3-7.7) k/uL Lymphocytes # (1.0-4.8) k/uL Monocytes # (0-1.0) k/uL Eosinophils # (0-0.7) k/uL Basophils # (0-0.2) k/uL Sodium (137-145) mmol/L Potassium (3.5-5.1) mmol/L Chloride (98-107) mmol/L Carbon Dioxide (22-30) mmol/L Anion Gap mmol/L BUN (7-17) mg/dL Creatinine (0.52-1.04) mg/dL Est GFR (CKD-EPI)AfAm (>60 ml/min/1.73 sqM) Est GFR (CKD-EPI)NonAf (>60 ml/min/1.73 sqM) Glucose (74-99) mg/dL Calcium (8.4-10.2) mg/dL Total Bilirubin (0.2-1.3) mg/dL AST (14-36) U/L ALT (4-34) U/L Alkaline Phosphatase (38-126) U/L Total Protein (6.3-8.2) g/dL Albumin (3.5-5.0) g/dL Lipase (23-300) U/L HCG, Quant mIU/mL Urine Color Urine Appearance (Clear) Urine pH (5.0-8.0) Ur Specific [place] (1.001-1.035) Urine Protein (Negative) Urine Glucose (UA) (Negative) Urine Ketones (Negative) Urine Blood (Negative) Urine Nitrite (Negative) Urine Bilirubin (Negative) Urine Urobilinogen (<2.0) mg/dL Ur Leukocyte Esterase (Negative) Urine RBC (0-5) /hpf Urine WBC (0-5) /hpf Ur Squamous Epith Cells (0-4) /hpf Urine Bacteria (None) /hpf Urine Mucus (None) /hpf Urine Yeast (Budding) (None) /hpf Blood Type A Positive Blood Type Recheck A Pos Bld Type Recheck Status No Antibody Screen POSITIVE Antibody Identification Anti-Jka Direct Antiglob Test Negative Spec Expiration Date 08/10/20242318 Disposition Clinical Impression: Threatened Disposition: HOME SELF-CARE Condition: Good Instructions (If sedation given, give patient instructions): Threatened Miscarriage (ED) Additional Instructions: Please return to the Emergency Department if symptoms worsen or any other concerns. Return to the emergency department in 48 hours for repeat hCG level. Follow-up as scheduled with OB. Is patient prescribed a controlled substance at d/c from ED?: No Referrals: None,Stated [Primary Care Provider] - 1-2 days Time of Disposition: 01:59
[2024-08-07 23:34] LABS: Basophils % (A) 0 %; Eosinophils # (A) 0.1 k/uL (0-0.7); Eosinophils % (A) 3 %; HCT 36.7 % (34.0-46.0); HGB 11.6 gm/dL (11.4-16.0); Lymphocytes # (A) 1.6 k/uL (1.0-4.8); Lymphocytes % (A) 36 %; MCH 26.5 pg (25.0-35.0); MCHC 31.5 g/dL (31.0-37.0); MCV 84.1 fL (80.0-100.0); Mean Platelet Volume 8.5; Monocytes # (A) 0.2 k/uL (0-1.0); Monocytes % (A) 5 %; Neutrophils # (A) 2.3 k/uL (1.3-7.7); Neutrophils % (A) 53 %; Platelet Count 217 k/uL (150-450); RBC 4.36 m/uL (3.80-5.40); RDW 15.4 % (11.5-15.5); WBC 4.4 k/uL (3.8-10.6)
[2024-08-07 23:47] LABS: ALT 34 U/L (4-34); AST 35 U/L (14-36); African American GFR (CKD) >90 (>60 ml/min/1.73 sqM); Albumin 4.3 g/dL (3.5-5.0); Alkaline Phosphatase 65 U/L (38-126); Anion Gap 11 mmol/L; Blood Urea Nitrogen <2 mg/dL (7-17); Calcium 8.9 mg/dL (8.4-10.2); Carbon Dioxide 24 mmol/L (22-30); Chloride 102 mmol/L (98-107); Glucose 136 mg/dL (74-99); Lipase 61 U/L (23-300); Non-African American GFR(CKD) >90 (>60 ml/min/1.73 sqM); Potassium 3.3 mmol/L (3.5-5.1); Sodium 137 mmol/L (137-145); Total Bilirubin 0.5 mg/dL (0.2-1.3); Total Protein 7.6 g/dL (6.3-8.2)
[2024-08-08 00:03] LABS: HCG,Quantitative Serum 1438.7 mIU/mL
[2024-08-08 00:51] LABS: Appearance,Urine Clear (Clear); Bacteria,Urine Occasional /hpf; Bilirubin,Urine Negative (Negative); Blood,Urine Negative (Negative); Budding Yeast,Urine Rare /hpf; Color,Urine Colorless; Glucose,Urine (UA) Negative (Negative); Ketones,Urine Negative (Negative); Leukocyte Esterase,Urine Trace (Negative); Mucus,Urine Rare /hpf; Nitrite,Urine Negative (Negative); Protein,Urine Negative (Negative); RBC,Urine 1 /hpf (0-5); Specific Gravity,Urine 1.007 (1.001-1.035); Squamous Epithelial Cell,Urine <1 /hpf (0-4); Urobilinogen,Urine <2.0 mg/dL (<2.0); WBC,Urine 1 /hpf (0-5)
--- NOTE | 2024-08-08 01:35 | US ---
EXAM: US , Transvaginal CLINICAL HISTORY: US Reason: cramping, 7 weeks, no US yet TECHNIQUE: Real-time transvaginal obstetrical ultrasound of the maternal pelvis and a first trimester with image documentation. Transvaginal imaging was used for better evaluation of the fetus and adnexa. COMPARISON: No relevant prior studies available. FINDINGS: Gestation: There is a small saclike structure in the endometrial cavity measuring approximately 0.34 cm in diameter consistent with 4 weeks 6 days. No definite surrounding decidual reaction is seen to confirm a gestational sac. No yolk sac or pole is visible. There is a subchorionic hemorrhage measuring 9 x 5 x 20 mm. Placenta/amniotic fluid: Not applicable. Uterus/cervix: The uterus measures about 5 x 4.5 x 6.2 cm, 109 mL and is anteverted. The myometrium is unremarkable. Ovaries: The right ovary measures 2.6 x 1.7 x 2.1 cm. The left ovary measures 1.4 x 2.1 x 1.4 cm. There is a 1.8 cm corpus luteum cyst in the right ovary. No mass. Free fluid: There is a trace amount of free fluid in the cul-de-sac. IMPRESSION: There is a small saclike structure in the endometrial cavity measuring approximately 0.34 cm in diameter consistent with 4 weeks 6 days. No definite surrounding decidual reaction is seen to confirm a gestational sac. No yolk sac or pole is visible. There is a subchorionic hemorrhage measuring 9 x 5 x 20 mm. Consider blighted ovum. Recommend correlation to serial quantitative beta hCG and/or follow-up ultrasound if necessary.
--- NOTE | 2024-08-08 01:36 | US ---
EXAM: US Abdomen Limited, Gallbladder CLINICAL HISTORY: US Reason: epigastric ab pain worse with eating, nausea TECHNIQUE: Real-time ultrasound of the right upper quadrant with image documentation. COMPARISON: No relevant prior studies available. FINDINGS: Liver: The liver measures 16.5 cm with no focal liver lesion. Gallbladder: The gallbladder is normally distended with no visible stones, wall thickening, or surrounding fluid. Common bile duct: The common bile duct is nondilated measuring 3 mm. Pancreas: The visualized portion of the pancreas is unremarkable. Right kidney: Unremarkable. No stones. No hydronephrosis. The right kidney measures 10.7 cm. Inferior vena cava: The IVC is unremarkable. Free fluid: No free fluid. IMPRESSION: No acute findings in the right upper quadrant.
[2024-08-08 02:32] VITALS: BP 118/79; PULSE 67; TEMP 97.9
== END 2024-08-08 02:19 | disposition home or self-care (01) ==
LOC: EC 22:53
DX: O26.891 Other specified pregnancy related conditions, first trimester (principal); O20.0 Threatened abortion; Z3A.01 Less than 8 weeks gestation of pregnancy
CPT/HCPCS: 36415; 76705; 76801; 76817; 80053; 81001; 83690; 84702; 85025; 86850; 86870; 86880; 86900; 86901; 99284

== ENCOUNTER → 2024-08-11 | Outpatient (CLI) | payer OTHER | END | disposition home or self-care (01) | LOC: LABWHC1 14:12 | PROVIDERS: ATTEND Physician Assistant | DX: O20.0 Threatened abortion (principal); Z3A.00 Weeks of gestation of pregnancy not specified | CPT/HCPCS: 36415; 84703 ==

== ENCOUNTER 2024-08-24 15:09 | Emergency (ER) | payer OTHER ==
--- NOTE | 2024-08-24 15:42 | ED ---
Abdominal Pain HPI - General Chief Complaint: Abdominal Pain Stated Complaint: 6weeks preg spotting Time Seen by Provider: 08/24/24 15:39 Source: patient, RN notes reviewed Mode of arrival: ambulatory Limitations: no limitations - History of Present Illness Initial Comments: 24-year-old G3, P2 female at approximately 6 weeks gestation presenting for vaginal bleeding with associated lower abdominal cramping and low back pain. Reports that the abdominal cramping started last night and persisted all throughout the night. At around 1 PM this afternoon, patient states she passed a large blood clot. Since then, she has had light vaginal spotting. She was seen for vaginal bleeding in the ER several weeks ago and was diagnosed with a subchorionic hemorrhage. Patient follows with an OB in [place]. Denies fever, nausea, vomiting, urinary symptoms. - Related Data Home Medications Medication Instructions Recorded Confirmed Bya-Heyg-Dqlqg Acid 1 cap PO DAILY 06/02/21 03/06/24 [-U Capsule (formulary)] Allergies Allergy/AdvReac Type Severity Reaction Status Date / Time No Known Allergies Allergy Verified 08/24/24 15:13 Review of Systems ROS Statement: Those systems with pertinent positive or pertinent negative responses have been documented in the HPI. ROS Other: All systems not noted in ROS Statement are negative. Past Medical History Past Medical History: No Reported History Additional Past Medical History / Comment(s): ovarian cysts History of Any Multi-Drug Resistant Organisms: None Reported Past Surgical History: No Surgical Hx Reported, Section Past Psychological History: Depression, Panic Disorder Smoking Status: Never smoker Past Alcohol Use History: Occasional Past Drug Use History: Marijuana General Exam Limitations: no limitations General appearance: alert, in no apparent distress Head exam: Present: atraumatic, normocephalic, normal inspection Eye exam: Present: normal appearance, PERRL, EOMI. Absent: scleral icterus, conjunctival injection, periorbital swelling GI/Abdominal exam: Present: soft, normal bowel sounds. Absent: distended, tenderness, guarding, rebound, rigid Back exam: Absent: CVA tenderness (R), CVA tenderness (L) Neurological exam: Present: alert, oriented X3 Psychiatric exam: Present: normal affect, normal mood Skin exam: Present: warm, dry, intact, normal color. Absent: rash Course Vital Signs 08/24/24 08/24/24 15:10 18:17 Temperature 98.0 F 98.2 F Pulse Rate 62 63 Respiratory 17 16 Rate Blood Pressure 109/70 102/65 O2 Sat by Pulse 99 96 Oximetry Medical Decision Making - Medical Decision Making Was pt. sent in by a medical professional or institution (ROLAND Rodriguez, ACCOUNTANT SUPERVISOR, urgent care, hospital, or long-term...) When possible be specific @ -No Did you speak to anyone other than the patient for history (EMS, parent, family, police, friend...)? What history was obtained from this source @ -No Did you review nursing and triage notes (agree or disagree)? Why? @ -I reviewed and agree with nursing and triage notes Were old charts reviewed (outside hosp., previous admission, EMS record, old EKG, old radiological studies, urgent care reports/EKG's, long-term records)? Report findings @ -Previous hCG level from 08/08 reviewed and ultrasound and pelvic ultrasound which revealed subchorionic hemorrhage Differential Diagnosis (chest pain, altered mental status, abdominal pain women, abdominal pain men, vaginal bleeding, weakness, fever, dyspnea, syncope, headache, dizziness, GI bleed, back pain, seizure, CVA, palpatations, mental health, musculoskeletal)? @ -Differential Vaginal Bleeding: Spontaneous , threatened , molar , ectopic , bloody show, incompetent cervix, abruptioplacenta, placenta previa, uterine rupture, dysfunctional uterine bleeding, hemorrhage, uterine fibr oids, this is not meant to be an all-inclusive list. EKG interpreted by me (3pts min.). @ -None X-rays interpreted by me (1pt min.). @ -None done CT interpreted by me (1pt min.). @ -None done U/S interpreted by me (1pt. min.). @ - ultrasound intrauterine gestational sac with yolk sac identified corresponding to ultrasound age 6 weeks 0 days. No pole or heart tones identified likely due to early gestational age, no subchorionic hemorrhage seen What testing was considered but not performed or refused? (CT, X-rays, U/S, labs)? Why? @ -None What meds were considered but not given or refused? Why? @ -Patient declines pain medication Did you discuss the management of the patient with other professionals (professionals i.e. ROLAND Rodriguez, ACCOUNTANT SUPERVISOR, lab, RT, psych nurse, social science instructor, lead clinical research coordinator, teacher, chief lending officer, case management assistant)? Give summary @ -No Was smoking cessation discussed for >3mins.? @ -No Was critical care preformed (if so, how long)? @ -No Were there social determinants of health that impacted care today? How? (Homelessness, low income, unemployed, alcoholism, drug addiction, transportation, low edu. Level, literacy, decrease access to med. care, senior care, rehab)? @ -No Was there de-escalation of care discussed even if they declined (Discuss DNR or withdrawal of care, Hospice)? DNR status @ -No What co-morbidities impacted this encounter? (DM, HTN, Smoking, COPD, CAD, Cancer, CVA, ARF, Chemo, Hep., AIDS, mental health diagnosis, sleep apnea, morbid obesity)? @ -None Was patient admitted / discharged? Hospital course, mention meds given and route, prescriptions, significant lab abnormalities, going to OR and other pertinent info. @ -Discharge. 24-year-old female at approximately 6 weeks gestation presenting for vaginal bleeding x 1 day with abdominal cramping. Vital signs within acceptable limits. Abdomen is soft and nonsurgical. hCG 10,289 significantly i ncreased from 311. Lab work largely unremarkable. Urinalysis reveals large amount of blood. ultrasound reveals intrauterine gestational sac with yolk sac identified corresponding to ultrasound age 6 weeks 0 days. No pole or heart tones identified likely due to early gestational age, no subchorionic hemorrhage seen. Results were discussed with patient. Discussed patient that clot may have been subchorionic hemorrhage passing or may be threatened . Advised to follow-up in 2 days for repeat beta-hCG levels. Advised to follow-up with OB for repeat ultrasound in 1 week. Appropriate return precautions and follow-up care discussed. Case was discussed with my ED attending Dr. Martines. Undiagnosed new problem with uncertain prognosis? @ -No Drug Therapy requiring intensive monitoring for toxicity (Heparin, Nitro, Insulin, Cardizem)? @ -No Were any procedures done? @ -No Diagnosis/symptom? @ -Threatened Acute, or Chronic, or Acute on Chronic? @ -Acute Uncomplicated (without systemic symptoms) or Complicated (systemic symptoms)? @ -Uncomplicated Side effects of treatment? @ -No Exacerbation, Progression, or Severe Exacerbation? @ -No Poses a threat to life or bodily function? How? (Chest pain, USA, [place], pneumonia, PE, COPD, DKA, ARF, appy, cholecystitis, CVA, Diverticulitis, Homicidal, Suicidal, threat to staff... and all critical care pts) @ -Not at this time - Lab Data Result diagrams: 08/24/24 16:14 08/24/24 16:14 Lab Results 08/24/24 08/24/24 08/24/24 Range/Units 16:14 16:14 16:14 WBC 6.5 (3.8-10.6) k/uL RBC 4.36 (3.80-5.40) m/uL Hgb 11.6 (11.4-16.0) gm/dL Hct 36.1 (34.0-46.0) % MCV 82.7 (80.0-100.0) fL MCH 26.5 (25.0-35.0) pg MCHC 32.1 (31.0-37.0) g/dL RDW 14.9 (11.5-15.5) % Plt Count 290 (150-450) k/uL MPV 8.2 Neutrophils % 57 % Lymphocytes % 33 % Monocytes % 5 % Eosinophils % 3 % Basophils % 1 % Neutrophils # 3.7 (1.3-7.7) k/uL Lymphocytes # 2.1 (1.0-4.8) k/uL Monocytes # 0.3 (0-1.0) k/uL Eosinophils # 0.2 (0-0.7) k/uL Basophils # 0.0 (0-0.2) k/uL Sodium 137 (137-145) mmol/L Potassium 4.0 (3.5-5.1) mmol/L Chloride 103 (98-107) mmol/L Carbon Dioxide 26 (22-30) mmol/L Anion Gap 8 mmol/L BUN 8 (7-17) mg/dL Creatinine 0.50 L (0.52-1.04) mg/dL Est GFR (CKD-EPI)AfAm >90 (>60 ml/min/1.73 sqM) Est GFR (CKD-EPI)NonAf >90 (>60 ml/min/1.73 sqM) Glucose 111 H (74-99) mg/dL Plasma Lactic Acid Chandra (0.7-2.0) mmol/L Calcium 9.1 (8.4-10.2) mg/dL Total Bilirubin 0.4 (0.2-1.3) mg/dL AST 25 (14-36) U/L ALT 22 (4-34) U/L Alkaline Phosphatase 71 (38-126) U/L Total Protein 7.4 (6.3-8.2) g/dL Albumin 4.1 (3.5-5.0) g/dL HCG, Quant 85953.9 mIU/mL Urine Color Colorless Urine Appearance Clear (Clear) Urine pH 6.5 (5.0-8.0) Ur Specific [place] 1.020 (1.001-1.035) Urine Protein Negative (Negative) Urine Glucose (UA) Negative (Negative) Urine Ketones Negative (Negative) Urine Blood Large H (Negative) Urine Nitrite Negative (Negative) Urine Bilirubin Negative (Negative) Urine Urobilinogen <2.0 (<2.0) mg/dL Ur Leukocyte Esterase Small H (Negative) Urine RBC 1 (0-5) /hpf Urine WBC 5 (0-5) /hpf Ur Squamous Epith Cells 3 (0-4) /hpf Urine Bacteria Rare H (None) /hpf Urine Mucus Rare H (None) /hpf Blood Type Blood Type Recheck Bld Type Recheck Status 08/24/24 08/24/24 Range/Units 16:14 16:14 WBC (3.8-10.6) k/uL RBC (3.80-5.40) m/uL Hgb (11.4-16.0) gm/dL Hct (34.0-46.0) % MCV (80.0-100.0) fL MCH (25.0-35.0) pg MCHC (31.0-37.0) g/dL RDW (11.5-15.5) % Plt Count (150-450) k/uL MPV Neutrophils % % Lymphocytes % % Monocytes % % Eosinophils % % Basophils % % Neutrophils # (1.3-7.7) k/uL Lymphocytes # (1.0-4.8) k/uL Monocytes # (0-1.0) k/uL Eosinophils # (0-0.7) k/uL Basophils # (0-0.2) k/uL Sodium (137-145) mmol/L Potassium (3.5-5.1) mmol/L Chloride (98-107) mmol/L Carbon Dioxide (22-30) mmol/L Anion Gap mmol/L BUN (7-17) mg/dL Creatinine (0.52-1.04) mg/dL Est GFR (CKD-EPI)AfAm (>60 ml/min/1.73 sqM) Est GFR (CKD-EPI)NonAf (>60 ml/min/1.73 sqM) Glucose (74-99) mg/dL Plasma Lactic Acid [place]andra 1.2 (0.7-2.0) mmol/L Calcium (8.4-10.2) mg/dL Total Bilirubin (0.2-1.3) mg/dL AST (14-36) U/L ALT (4-34) U/L Alkaline Phosphatase (38-126) U/L Total Protein (6.3-8.2) g/dL Albumin (3.5-5.0) g/dL HCG, Quant mIU/mL Urine Color Urine Appearance (Clear) Urine pH (5.0-8.0) Ur Specific [place] (1.001-1.035) Urine Protein (Negative) Urine Glucose (UA) (Negative) Urine Ketones (Negative) Urine Blood (Negative) Urine Nitrite (Negative) Urine Bilirubin (Negative) Urine Urobilinogen (<2.0) mg/dL Ur Leukocyte Esterase (Negative) Urine RBC (0-5) /hpf Urine WBC (0-5) /hpf Ur Squamous Epith Cells (0-4) /hpf Urine Bacteria (None) /hpf Urine Mucus (None) /hpf Blood Type A Positive Blood Type Recheck A Pos Bld Type Recheck Status No Disposition Clinical Impression: Threatened Disposition: HOME SELF-CARE Condition: Stable Instructions (If sedation given, give patient instructions): Threatened Miscarriage (ED) Additional Instructions: Follow-up for repeat beta hCG levels in 2 days. Your beta hCG level was 10,289 today. Follow-up with your OB as discussed. Please return to the Emergency Department if symptoms worsen or any other concerns. Is patient prescribed a controlled substance at d/c from ED?: No Referrals: None,Stated [Primary Care Provider] - 1-2 days Time of Disposition: 17:59
[2024-08-24 16:25] LABS: Basophils % (A) 1 %; Eosinophils # (A) 0.2 k/uL (0-0.7); Eosinophils % (A) 3 %; HCT 36.1 % (34.0-46.0); HGB 11.6 gm/dL (11.4-16.0); Lymphocytes # (A) 2.1 k/uL (1.0-4.8); Lymphocytes % (A) 33 %; MCH 26.5 pg (25.0-35.0); MCHC 32.1 g/dL (31.0-37.0); MCV 82.7 fL (80.0-100.0); Mean Platelet Volume 8.2; Monocytes # (A) 0.3 k/uL (0-1.0); Monocytes % (A) 5 %; Neutrophils # (A) 3.7 k/uL (1.3-7.7); Neutrophils % (A) 57 %; Platelet Count 290 k/uL (150-450); RBC 4.36 m/uL (3.80-5.40); RDW 14.9 % (11.5-15.5); WBC 6.5 k/uL (3.8-10.6)
[2024-08-24 16:36] LABS: ALT 22 U/L (4-34); AST 25 U/L (14-36); African American GFR (CKD) >90 (>60 ml/min/1.73 sqM); Albumin 4.1 g/dL (3.5-5.0); Alkaline Phosphatase 71 U/L (38-126); Anion Gap 8 mmol/L; Blood Urea Nitrogen 8 mg/dL (7-17); Calcium 9.1 mg/dL (8.4-10.2); Carbon Dioxide 26 mmol/L (22-30); Chloride 103 mmol/L (98-107); Glucose 111 mg/dL (74-99); Non-African American GFR(CKD) >90 (>60 ml/min/1.73 sqM); Sodium 137 mmol/L (137-145); Total Bilirubin 0.4 mg/dL (0.2-1.3); Total Protein 7.4 g/dL (6.3-8.2)
[2024-08-24 16:39] LABS: Appearance,Urine Clear (Clear); Bacteria,Urine Rare /hpf; Bilirubin,Urine Negative (Negative); Blood,Urine Large (Negative); Color,Urine Colorless; Glucose,Urine (UA) Negative (Negative); Ketones,Urine Negative (Negative); Leukocyte Esterase,Urine Small (Negative); Mucus,Urine Rare /hpf; Nitrite,Urine Negative (Negative); PH, Urine 6.5 (5.0-8.0); Protein,Urine Negative (Negative); RBC,Urine 1 /hpf (0-5); Squamous Epithelial Cell,Urine 3 /hpf (0-4); Urobilinogen,Urine <2.0 mg/dL (<2.0); WBC,Urine 5 /hpf (0-5)
--- NOTE | 2024-08-24 16:59 | US ---
EXAMINATION TYPE: Transabdominal DATE OF EXAM: 08/24/2024 4:46 PM COMPARISON: US 2024 CLINICAL INDICATION: Female, 24 years old with history of vaginal bleeding in ; Bleeding and cramping TECHNIQUE: Transvaginal (TV) and Transabdominal (TA) with grayscale and color Doppler imaging includi ng first trimester . FINDINGS: EXAM MEASUREMENTS: GESTATIONAL AGE / DATING Physician Established: Not yet established Dates by LMP: LMP unknown Dates by First Scan: (7 weeks/2 days) EDC: 04/10/2025 Dates by Current Scan for: By gestational sac (6 weeks/0 days) EDC: 04/19/2025 MATERNAL ANATOMY Uterus: 7.5 x 4.4 x 5.4cm Right Ovary: 2.8 x 1.9 x 2.3cm Left Ovary: not seen Post CDS / Adnexa: wnl Presence of free fluid: no Presence of corpus luteal cyst: right ovary: 1.4 x 0.8 x 1.2cm Presence of subchorionic bleed: no GESTATION / SURVEY Gestational Sac MSD: 1.2cm (6 weeks/0 days) Yolk Sac (normal less than 6mm): 5.9mm IUP: No pole seen at this time Beta HcG (if available): 10,288.9 Previously seen subchorionic hemorrhage is not definitively visualized on today's exam. IMPRESSION: Intrauterine gestational sac with yolk sac identified corresponding to ultrasound age of 6 weeks 0 da ys. No pole or heart tones are identified at this time likely due to early gestational ag e. Recommend follow-up with pelvic ultrasound and serial beta hCG to ensure further development of th e fetus. [facility], , 08/24/2024 4:57 PM
[2024-08-24 18:19] VITALS: BP 102/65; PULSE 63; RESP 16; TEMP 98.2
== END 2024-08-24 18:18 | disposition home or self-care (01) ==
LOC: EC 15:09
DX: O20.0 Threatened abortion (principal); Z3A.01 Less than 8 weeks gestation of pregnancy
CPT/HCPCS: 36415; 76801; 76817; 80053; 81001; 83605; 84702; 85025; 86900; 86901; 99284

== ENCOUNTER 2024-08-26 12:40 | Emergency (ER) | payer OTHER ==
[2024-08-26 12:44] VITALS: PULSE 64; RESP 18
--- NOTE | 2024-08-26 12:45 | ED ---
Female Urogenital HPI - General Chief complaint: Vaginal Bleeding Stated complaint: bleeding, 7 wks preg, cramping Time Seen by Provider: 08/26/24 12:44 Source: patient, RN notes reviewed Mode of arrival: ambulatory Limitations: no limitations - History of Present Illness Initial comments: This is a 24-year-old female, G3T2L2, presenting to emergency department at approximately 7 weeks gestation with complaint of vaginal bleeding. Patient states that she was evaluated 2 days earlier with symptoms of vaginal bleeding where she was instructed to follow-up in 2 days for repeat hCG testing in 1 week for ultrasound. Patient states that she has been having relatively persistent vaginal bleeding saturated approximately 2-4 sanitary pads per day. Endorses passage of clots measuring 2-3 millimeters in diameter. Endorses mild suprapubic cramping. Patient was evaluated on 08/24/2024 with a blood type of A+. - Related Data Home Medications Medication Instructions Recorded Confirmed Akv-Hnuo-Yobdj Acid 1 cap PO DAILY 06/02/21 03/06/24 [-U Capsule (formulary)] Previous Rx's Medication Instructions Recorded Acetaminophen [Acetaminophen 8 hr] 650 mg PO Q8H #21 tab 08/26/24 Allergies Allergy/AdvReac Type Severity Reaction Status Date / Time No Known Allergies Allergy Verified 08/26/24 12:43 Review of Systems ROS Statement: Those systems with pertinent positive or pertinent negative responses have been documented in the HPI. ROS Other: All systems not noted in ROS Statement are negative. Past Medical History Past Medical History: No Reported History Additional Past Medical History / Comment(s): ovarian cysts History of Any Multi-Drug Resistant Organisms: None Reported Past Surgical History: No Surgical Hx Reported, Section Past Psychological History: Depression, Panic Disorder Smoking Status: Never smoker Past Alcohol Use History: Occasional Past Drug Use History: Marijuana General Exam Limitations: no limitations Eye exam: Present: normal appearance, PERRL, EOMI. Absent: scleral icterus, conjunctival injection, periorbital swelling Respiratory exam: Present: normal lung sounds bilaterally. Absent: respiratory distress, wheezes, rales, rhonchi, stridor Cardiovascular Exam: Present: regular rate, normal rhythm, normal heart sounds. Absent: systolic murmur, diastolic murmur, rubs, gallop, clicks GI/Abdominal exam: Present: soft, tenderness (supurapubic), normal bowel sounds. Absent: distended, guarding, rebound, rigid Extremities exam: Present: normal inspection, full ROM, normal capillary refill. Absent: tenderness, pedal edema, joint swelling, calf tenderness Back exam: Present: normal inspection. Absent: CVA tenderness (R), CVA tenderness (L) Course Vital Signs 08/26/24 12:41 Temperature 97.6 F Pulse Rate 64 Respiratory 18 Rate Blood Pressure 115/80 O2 Sat by Pulse 99 Oximetry Medical Decision Making - Medical Decision Making Was pt. sent in by a medical professional or institution (, PA, TREKKING GUIDE, urgent care, hospital, or correction...) When possible be specific @ -No Did you speak to anyone other than the patient for history (EMS, parent, family, police, friend...)? What history was obtained from this source @ -No Did you review nursing and triage notes (agree or disagree)? Why? @ -I reviewed and agree with nursing and triage notes Were old charts reviewed (outside hosp., previous admission, EMS record, old EKG, old radiological studies, urgent care reports/EKG's, correction records)? Report findings @ -Reviewed OB ultrasound was completed on 08/24/2024 revealing a intrauterine gestational sac with yolk sac identified corresponding age of 6 weeks 0 days with no pole or heart tones identified. Differential Diagnosis (chest pain, altered mental status, abdominal pain women, abdominal pain men, vaginal bleeding, weakness, fever, dyspnea, syncope, headache, dizziness, GI bleed, back pain, seizure, CVA, palpatations, mental health, musculoskeletal)? @ -Differential Vaginal Bleeding: Spontaneous , threatened , molar , ectopic , bloody show, incompetent cervix, abruptioplacenta, placenta previa, uterine rupture, dysfunctional uterine bleeding, hemorrhage, uterine fibroid s, this is not meant to be an all-inclusive list. EKG interpreted by me (3pts min.). @ -None X-rays interpreted by me (1pt min.). @ -None done CT interpreted by me (1pt min.). @ -None done U/S interpreted by me (1pt. min.). @ -None done What testing was considered but not performed or refused? (CT, X-rays, U/S, labs)? Why? @ -None What meds were considered but not given or refused? Why? @ -None Did you discuss the management of the patient with other professionals (professionals i.e. , PA, TREKKING GUIDE, lab, RT, psych nurse, social economist, curriculum development manager, teacher, senior credit officer, renal case manager)? Give summary @ -No Was smoking cessation discussed for >3mins.? @ -No Was critical care preformed (if so, how long)? @ -No Were there social determinants of health that impacted care today? How? (Homelessness, low income, unemployed, alcoholism, drug addiction, transportation, low edu. Level, literacy, decrease access to med. care, [facility], rehab)? @ -No Was there de-escalation of care discussed even if they declined (Discuss DNR or withdrawal of care, Hospice)? DNR status @ -No What co-morbidities impacted this encounter? (DM, HTN, Smoking, COPD, CAD, Cancer, CVA, ARF, Chemo, Hep., AIDS, mental health diagnosis, sleep apnea, morbid obesity)? @ -None Was patient admitted / discharged? Hospital course, mention meds given and route, prescriptions, significant lab abnormalities, going to OR and other pertinent info. @ -Discharge. 24-year-old female presenting with vaginal bleeding during pregna ncy. Patient presents emergency department 08/24/2024 where she underwent extensive evaluation including laboratory testing and ultrasound imaging. Ultrasound at that time revealed an intrauterine dated at 6 weeks 0 days with no pole or heart rate detected. hCG level over 10,000. During evaluation patient noted to have suprapubic tenderness/pelvic cramping to palpation. Labs remarkable for a decrease in hCG quantitative level of over 8900. Urinalysis no signs of infection. Hemoglobin is stable. Recommend the patient follow-up in 5 days for repeat ultrasound with OB and return parameters have been discussed. Case discussed with Dr. Mc Undiagnosed new problem with uncertain prognosis? @ -No Drug Therapy requiring intensive monitoring for toxicity (Heparin, Nitro, Insulin, Cardizem)? @ -No Were any procedures done? @ -No Diagnosis/symptom? @ -threatened miscarriage Acute, or Chronic, or Acute on Chronic? @ -acute Uncomplicated (without systemic symptoms) or Complicated (systemic symptoms)? @ -uncomplicated Side effects of treatment? @ -No Exacerbation, Progression, or Severe Exacerbation? @ -No Poses a threat to life or bodily function? How? (Chest pain, USA, [place], pneumonia, PE, COPD, DKA, ARF, appy, cholecystitis, CVA, Diverticulitis, Homicidal, Suicidal, threat to staff... and all critical care pts) @ -No - Lab Data Result diagrams: 08/26/24 13:14 08/26/24 13:14 Lab Results 08/26/24 08/26/24 08/26/24 Range/Units 13:14 13:14 14:16 WBC 6.6 (3.8-10.6) k/uL RBC 4.37 (3.80-5.40) m/uL Hgb 11.6 (11.4-16.0) gm/dL Hct 36.0 (34.0-46.0) % MCV 82.3 (80.0-100.0) fL MCH 26.5 (25.0-35.0) pg MCHC 32.2 (31.0-37.0) g/dL RDW 15.0 (11.5-15.5) % Plt Count 276 (150-450) k/uL MPV 8.2 Neutrophils % 61 % Lymphocytes % 30 % Monocytes % 4 % Eosinophils % 2 % Basophils % 1 % Neutrophils # 4.0 (1.3-7.7) k/uL Lymphocytes # 1.9 (1.0-4.8) k/uL Monocytes # 0.3 (0-1.0) k/uL Eosinophils # 0.2 (0-0.7) k/uL Basophils # 0.0 (0-0.2) k/uL Sodium 136 L (137-145) mmol/L Potassium 4.2 (3.5-5.1) mmol/L Chloride 103 (98-107) mmol/L Carbon Dioxide 26 (22-30) mmol/L Anion Gap 7 mmol/L BUN 7 (7-17) mg/dL Creatinine 0.43 L (0.52-1.04) mg/dL Est GFR (CKD-EPI)AfAm >90 (>60 ml/min/1.73 sqM) Est GFR (CKD-EPI)NonAf >90 (>60 ml/min/1.73 sqM) Glucose 113 H (74-99) mg/dL Calcium 9.1 (8.4-10.2) mg/dL Total Bilirubin 0.5 (0.2-1.3) mg/dL AST 28 (14-36) U/L ALT 21 (4-34) U/L Alkaline Phosphatase 75 (38-126) U/L Total Protein 7.8 (6.3-8.2) g/dL Albumin 4.3 (3.5-5.0) g/dL HCG, Quant 8929.7 mIU/mL Urine Color Colorless Urine Appearance Clear (Clear) Urine pH 6.0 (5.0-8.0) Ur Specific [place] 1.004 (1.001-1.035) Urine Protein Negative (Negative) Urine Glucose (UA) Negative (Negative) Urine Ketones Negative (Negative) Urine Blood Large H (Negative) Urine Nitrite Negative (Negative) Urine Bilirubin Negative (Negative) Urine Urobilinogen <2.0 (<2.0) mg/dL Ur Leukocyte Esterase Negative (Negative) Urine RBC 43 H (0-5) /hpf Urine WBC 3 (0-5) /hpf Ur Squamous Epith Cells <1 (0-4) /hpf Urine Bacteria Rare H (None) /hpf Urine Mucus Rare H (None) /hpf Disposition Clinical Impression: Threatened miscarriage Disposition: HOME SELF-CARE Condition: Stable Instructions (If sedation given, give patient instructions): Threatened Miscarriage (ED) Additional Instructions: Please return to the Emergency Department if symptoms worsen or any other concerns. As discussed, follow-up with repeat ultrasound in 5 days. Follow-up as scheduled with OB for evaluation. Continue to take Tylenol as needed for pain relief Prescriptions: Acetaminophen [Acetaminophen 8 hr] 650 mg PO Q8H #21 tab Is patient prescribed a controlled substance at d/c from ED?: No Referrals: None,Stated [Primary Care Provider] - 1-2 days Time of Disposition: 14:39
[2024-08-26 13:18] LABS: Basophils % (A) 1 %; Eosinophils # (A) 0.2 k/uL (0-0.7); Eosinophils % (A) 2 %; HGB 11.6 gm/dL (11.4-16.0); Lymphocytes # (A) 1.9 k/uL (1.0-4.8); Lymphocytes % (A) 30 %; MCH 26.5 pg (25.0-35.0); MCHC 32.2 g/dL (31.0-37.0); MCV 82.3 fL (80.0-100.0); Mean Platelet Volume 8.2; Monocytes # (A) 0.3 k/uL (0-1.0); Monocytes % (A) 4 %; Neutrophils % (A) 61 %; Platelet Count 276 k/uL (150-450); RBC 4.37 m/uL (3.80-5.40); WBC 6.6 k/uL (3.8-10.6)
[2024-08-26 13:34] LABS: ALT 21 U/L (4-34); African American GFR (CKD) >90 (>60 ml/min/1.73 sqM); Albumin 4.3 g/dL (3.5-5.0); Anion Gap 7 mmol/L; Blood Urea Nitrogen 7 mg/dL (7-17); Calcium 9.1 mg/dL (8.4-10.2); Carbon Dioxide 26 mmol/L (22-30); Chloride 103 mmol/L (98-107); Glucose 113 mg/dL (74-99); Non-African American GFR(CKD) >90 (>60 ml/min/1.73 sqM); Sodium 136 mmol/L (137-145); Total Bilirubin 0.5 mg/dL (0.2-1.3); Total Protein 7.8 g/dL (6.3-8.2)
[2024-08-26 14:02] LABS: AST 28 U/L (14-36); Potassium 4.2 mmol/L (3.5-5.1)
[2024-08-26 14:03] LABS: Alkaline Phosphatase 75 U/L (38-126)
[2024-08-26 14:28] LABS: Appearance,Urine Clear (Clear); Bacteria,Urine Rare /hpf; Bilirubin,Urine Negative (Negative); Blood,Urine Large (Negative); Color,Urine Colorless; Glucose,Urine (UA) Negative (Negative); Ketones,Urine Negative (Negative); Leukocyte Esterase,Urine Negative (Negative); Mucus,Urine Rare /hpf; Nitrite,Urine Negative (Negative); Protein,Urine Negative (Negative); RBC,Urine 43 /hpf (0-5); Specific Gravity,Urine 1.004 (1.001-1.035); Squamous Epithelial Cell,Urine <1 /hpf (0-4); Urobilinogen,Urine <2.0 mg/dL (<2.0); WBC,Urine 3 /hpf (0-5)
[2024-08-26] MEDS: HYDROcodone/APAP 7.5-325MG 1 EACH TAB PO ONE (14:30)
[2024-08-26 14:59] VITALS: BP 122/73; TEMP 98.1
== END 2024-08-26 14:59 | disposition home or self-care (01) ==
LOC: EC 12:40
DX: O20.0 Threatened abortion (principal); Z3A.01 Less than 8 weeks gestation of pregnancy
CPT/HCPCS: 36415; 80053; 81001; 84702; 85025; 99284